=== PATIENT | male | born 1985 | race African-American/Black ===

== ENCOUNTER → 2017-03-16 | Outpatient (CLI) | payer OTHER | LOC: RAD 14:56 | PROVIDERS: ATTEND Physician Assistant Medical | DX: S80.912A Unspecified superficial injury of left knee, initial encounter (principal); M25.562 Pain in left knee; X58.XXXA Exposure to other specified factors, initial encounter ==

== ENCOUNTER 2017-03-23 15:18 | Day surgery (SDC) | payer OTHER ==
[~2017-03-23 15:18] MED LIST: BUPIVACAINE HCL 0.25 % INJ/PF (2.5 MG/1 ML) 30 ML VIAL ONE; CEFAZOLIN 2 GM/D5W RTU 2 GM/50 ML RTUPB IV PRN; DEXAMETHASONE SOD PHOSPHATE INJ 4 MG/1 ML VIAL ONE; ONDANSETRON HCL INJ/PF 4 MG/2 ML SDV ONE; SUCCINYLCHOLINE CHLORIDE INJ 200 MG/10 ML VIAL ONE
[2017-03-23 16:10] LABS: HEMATOCRIT 46.1 % (37.9-51.0); HEMOGLOBIN 15.5 g/dL (13.5-17.0); HGB HCT DIFFERENCE 0.4; MEAN CORPUSCULAR HEMOGLOBIN 30.9 pg (27.0-33.4); MEAN CORPUSCULAR HGB CONC 33.6 g/dL (32.0-36.0); MEAN CORPUSCULAR VOLUME 92 fl (80-97); RED BLOOD COUNT 5.01 10^6/uL (4.35-5.55); RED CELL DISTRIBUTION WIDTH 13.3 % (11.5-14.0); WHITE BLOOD COUNT 4.1 10^3/uL (4.0-10.5)
[2017-03-23 16:26] LABS: ANION GAP 8 (5-19); BLOOD UREA NITROGEN 23 mg/dL (7-20); CALCIUM 9.5 mg/dL (8.4-10.2); CARBON DIOXIDE 29 mmol/L (22-30); CHLORIDE 102 mmol/L (98-107); CREATININE RESULT 1.26 mg/dL (0.52-1.25); GLUCOSE 89 mg/dL (75-110); POTASSIUM 4.4 mmol/L (3.6-5.0); SODIUM 139.2 mmol/L (137-145)
[2017-03-23] MEDS ORDERED: MIDAZOLAM 2 MG/2 ML INJ ONE (16:34)
[2017-03-23] MEDS ORDERED: HYDROMORPHONE HCL INJ/PF 2 MG/ML AMPULE ONE (16:34)
[2017-03-23] MEDS ORDERED: FENTANYL CITRATE INJ/PF 250 MCG/5 ML AMPULE ONE (16:34)
[2017-03-23] MEDS ORDERED: EPHEDRINE SULFATE INJ 50 MG/1 ML AMPULE ONE (16:35)
[2017-03-23] MEDS ORDERED: ACETAMINOPHEN 100 ML IV ONE (16:35)
[2017-03-23] MEDS ORDERED: PROPOFOL INJ 200 MG/20 ML VIAL IV ONE (16:35)
[2017-03-23] MEDS ORDERED: OXYCODONE-ACETAMINOPHEN 5-325 MG TABLET PO PRN ×4 (18:03→19:08)
[2017-03-23] MEDS ORDERED: MEPERIDINE HCL/PF INJ 25 MG/1 ML DISP.SYRIN IV PRN (18:03)
[2017-03-23] MEDS ORDERED: FENTANYL CITRATE INJ/PF 100 MCG/2 ML AMPUL IV PRN ×3 (18:03)
[2017-03-23] MEDS ORDERED: DIPHENHYDRAMINE HCL 50 MG/ML VIAL IV PRN (18:03)
[2017-03-23] MEDS ORDERED: MORPHINE SULFATE 10 MG/ML INJ IV PRN (18:03)
[2017-03-23] MEDS ORDERED: PROMETHAZINE HCL INJ 25 MG/1 ML VIAL IV PRN ×2 (18:03)
--- NOTE | 2017-03-23 19:01 | Operative Report ---
Operative Report DATE OF SURGERY: 03/23/17 PREOPERATIVE DIAGNOSIS: Left quadriceps tendon rupture POSTOPERATIVE DIAGNOSIS: Left quadriceps tendon rupture OPERATION: Left quadriceps tendon repair SURGEON: CHARAN QUIJANO ANESTHESIA: GA TISSUE REMOVED OR ALTERED: None COMPLICATIONS: None ESTIMATED BLOOD LOSS: 5 mL INTRAOPERATIVE FINDINGS: Greater than 95% rupture of the quadriceps tendon PROCEDURE: After receiving 2 g of Ancef in the preop holding area patient left knee was marked. Patient was brought to the operating room where the patient was successfully sedated and intubated. A thigh tourniquet was applied to the left thigh and a bump was placed under his buttocks. The left lower extremity was prepped and draped in a normal sterile surgical fashion. Timeout was done identifying the left knee as the correct site. Esmarch was used to exsanguinate the extremity and the tourniquet was inflated to 300 mmHg. A longitudinal incision over the knee was done using a 10 blade. Deep knife was using to quickly exposed the torn quadriceps tendon. Dissection was taken down distally exposing the patellar tendon. Suction was used to remove all of the fluid and hematoma. The edges of the quadriceps tendon and superior pole of patella were debrided and cleaned with Octavio, and knife. I used 2 #2 fiber tape to do my Krakw stitch in the quadriceps tendon. After the 4 strands of the fiber tape were coming out of the quadriceps I clamped these and then proceeded to do my 3 drill holes in the patella. I use a 2.0 drill bit and made separate stab incisions parallel with the patellar tendon fibers to expose the inferior pole of the patella distally. I used a Knight suture passer and passed it from the superior pole and came out of the stab incisions distally to capture Vicryl which I pulled through them. The Vicryl was used as a suture passer and I was used the fiber wires and freedom through them through the superior pole and have him come out the inferior pole. After 4 strands were passed, one most lateral one most medial and the 2 inner tails were passed through the middle drill hole. The knee was placed in full extension and I was able to pull on the fiber strands to make sure that the quadriceps tendon would abut the superior pole of the patella. I was able then to go and tying knots securing the quadriceps tendon to the superior pole. After securing the tendon I proceeded then to use 0 Vicryl to repair the medial and lateral retinaculum. I used 0 Vicryl to repair the stab incisions in the patellar tendon. I placed the knee from 0 to 90 making sure that my repair held and it did. At this point I proceeded to close the wound with 0 Vicryl to Vicryl and bennett for skin. Xeroform 4 x 4 dressing and Sof-Rol was applied to the wound and lower extremity. I overwrapped it with an Suresh bandage. Tourniquet was let down and then the drapes were removed. Patient was placed in a hinged knee brace locked at 0. Patient was successfully extubated and sent to PACU in stable condition.
--- NOTE | 2017-03-23 19:08 | PDOC DISCHARGE SUMMARY ---
Discharge Summary (SDC) - Discharge Final Diagnosis: Left quadriceps tendon repair Date of Surgery: 03/23/17 Discharge Date: 03/23/17 Condition: Good Treatment or Instructions: Weight-bear as tolerated with hinged knee brace locked at 0. Use crutches for stability. Ice and elevate when not ambulating. Follow-up in 10-14 days Change dressing in 5 days. At that point patient can shower the extremity. No soaking of the incision. Prescriptions: Ondansetron HCl [Zofran 4 mg Tablet] 1 - 2 tab PO Q8HP PRN #20 tablet PRN Reason: Oxycodone HCl/Acetaminophen [Percocet 5-325 mg Tablet] 1 - 2 tab PO ASDIR PRN # 25 tablet PRN Reason: Discharge Diet: As Tolerated Respiratory Treatments at Home: Deep Breathing/Coughing Discharge Activity: No Lifting/Push/Pulling Home Care Assistance: None Needed Adaptive Devices on Discharge: Axillary Crutches Report the Following to Your Physician Immediately: Shortness of Breath, Vomiting, Increase in Pain, Fever over 101 Degrees, Unusual Bleeding, Redness, Swelling, Warmth, Drainage-Yellow, Drainage-Green, Drainage-Foul Smelling, Visual Disturbance, Seizure
[2017-03-23] MEDS ORDERED: IBUPROFEN INJ 800 MG/8 ML VIAL IV ONE (19:10)
[2017-03-23] MEDS ORDERED: LIDOCAINE 2%/EPINEPHRINE INJ 20 ML VIAL ONE (19:36)
[2017-03-23] MEDS ORDERED: ROPIVACAINE HCL 0.5% INJ/PF (5 MG/1 ML) 30 ML SDV ONE (19:36)
[2017-03-23] MEDS ORDERED: LIDOCAINE 2% INJ-PF (20 MG/ML) 10 ML AMPUL ONE (19:37)
[2017-03-23 23:03] VITALS: BP 131/92
== END 2017-03-23 23:24 | disposition home or self-care (01) ==
LOC: OROUT 15:18 → 4S 20:08 → OROUT 23:24
PROVIDERS: ATTEND Orthopaedic Surgery
PROC: 0LQM0ZZ Repair Left Upper Leg Tendon, Open Approach (ICD-10-PCS; principal; 2017-03-23 15:00)
DX: S76.192A Other specified injury of left quadriceps muscle, fascia and tendon, initial encounter (principal); X58.XXXA Exposure to other specified factors, initial encounter; M25.562 Pain in left knee
CPT/HCPCS: 36415; 85027; 80048; 27664; L1830; J2795; J2250; J1100; J3490 ×3; J3010; J1170; J0330; J2405; J2704; J0690; J0131; J1741; 1250

== ENCOUNTER 2017-06-29 10:26 | Day surgery (SDC) | payer OTHER ==
--- NOTE | 2017-06-26 10:16 | RADIOLOGY REPORT (SQ) ---
EXAM DESCRIPTION: CHEST PA/LATERAL COMPLETED DATE/TIME: 06/26/2017 10:08 am REASON FOR STUDY: PRE OP COMPARISON: None. EXAM PARAMETERS: NUMBER OF VIEWS: two views TECHNIQUE: Digital Frontal and Lateral radiographic views of the chest acquired. RADIATION DOSE: NA LIMITATIONS: none FINDINGS: LUNGS AND PLEURA: No opacities, masses or pneumothorax. No pleural effusion. MEDIASTINUM AND HILAR STRUCTURES: No masses or contour abnormalities. HEART AND VASCULAR STRUCTURES: Heart normal size. No evidence for failure. BONES: No acute findings. HARDWARE: None in the chest. OTHER: No other significant finding. IMPRESSION: NO SIGNIFICANT RADIOGRAPHIC FINDING IN THE CHEST. TECHNICAL DOCUMENTATION: JOB ID: [id number]- All Rights Reserved
[2017-06-26 10:41] LABS: APPEARANCE,URINE CLEAR; BILIRUBIN,URINE NEGATIVE (NEGATIVE); GLUCOSE, URINE NEGATIVE (NEGATIVE); KETONES,URINE NEGATIVE (NEGATIVE); LEUKOCYTE ESTERASE,URINE NEGATIVE (NEGATIVE); NITRITE,URINE NEGATIVE (NEGATIVE); PROTEIN,URINE NEGATIVE (NEGATIVE); URINE SPECIFIC GRAVITY 1.016; UROBILINOGEN,URINE NEGATIVE mg/dL (<2.0)
[2017-06-26 10:48] LABS: ABSOLUTE EOSINOPHILS # (AUTO) 0.1 10^3/uL (0.0-0.6); ABSOLUTE LYMPHOCYTES (AUTO) 1.7 10^3/uL (0.5-4.7); ABSOLUTE MONOCYTES (AUTO) 0.3 10^3/uL (0.1-1.4); BASOPHILS % (AUTO) 0.6 % (0-2); EOSINOPHILS % (AUTO) 3.2 % (0-6); HEMATOCRIT 44.3 % (37.9-51.0); HEMOGLOBIN 14.9 g/dL (13.5-17.0); HGB HCT DIFFERENCE 0.4; LYMPHOCYTES % (AUTO) 41.1 % (13-45); MEAN CORPUSCULAR HEMOGLOBIN 31.3 pg (27.0-33.4); MEAN CORPUSCULAR HGB CONC 33.7 g/dL (32.0-36.0); MEAN CORPUSCULAR VOLUME 93 fl (80-97); MONOCYTES % (AUTO) 6.9 % (3-13); RED BLOOD COUNT 4.76 10^6/uL (4.35-5.55); RED CELL DISTRIBUTION WIDTH 13.8 % (11.5-14.0); SEGMENTED NEUTROPHILS % (AUTO) 48.2 % (42-78); WHITE BLOOD COUNT 4.2 10^3/uL (4.0-10.5)
[2017-06-26 11:15] LABS: ANION GAP 11 (5-19); BLOOD UREA NITROGEN 21 mg/dL (7-20); CALCIUM 9.9 mg/dL (8.4-10.2); CARBON DIOXIDE 28 mmol/L (22-30); CHLORIDE 102 mmol/L (98-107); CREATININE RESULT 1.12 mg/dL (0.52-1.25); GLUCOSE 91 mg/dL (75-110); SODIUM 140.5 mmol/L (137-145)
--- NOTE | 2017-06-26 12:06 | EKG REPORT ---
SEVERITY:- NORMAL ECG - SINUS RHYTHM : Confirmed by: Davonte Garcia 26-Jun-2017 12:06:33
[~2017-06-29 10:26] MED LIST changes: -BUPIVACAINE HCL 0.25 % INJ/PF (2.5 MG/1 ML) 30 ML VIAL ONE; -DEXAMETHASONE SOD PHOSPHATE INJ 4 MG/1 ML VIAL ONE; +LACTATED RINGERS 1000 ML IV PRN; +LIDOCAINE 0.5% INJ-PF (5 MG/ML) 50 ML SDV SUBCUT PRN; -ONDANSETRON HCL INJ/PF 4 MG/2 ML SDV ONE; -SUCCINYLCHOLINE CHLORIDE INJ 200 MG/10 ML VIAL ONE
[2017-06-29] MEDS ORDERED: FENTANYL CITRATE INJ/PF 250 MCG/5 ML AMPULE ONE (12:26)
[2017-06-29] MEDS ORDERED: IBUPROFEN INJ 800 MG/8 ML VIAL IV ONE (12:27)
[2017-06-29] MEDS ORDERED: MIDAZOLAM 2 MG/2 ML INJ ONE (12:27)
[2017-06-29] MEDS ORDERED: EPHEDRINE SULFATE INJ 50 MG/1 ML AMPULE ONE (12:27)
[2017-06-29] MEDS ORDERED: PROPOFOL INJ 200 MG/20 ML VIAL IV ONE (12:27)
[2017-06-29] MEDS ORDERED: HYDROMORPHONE HCL INJ/PF 2 MG/ML AMPULE ONE (12:28)
[2017-06-29] MEDS ORDERED: PROMETHAZINE HCL INJ 25 MG/1 ML VIAL IV PRN (13:01)
[2017-06-29] MEDS ORDERED: MEPERIDINE HCL/PF INJ 25 MG/1 ML DISP.SYRIN IV PRN (13:01)
[2017-06-29] MEDS ORDERED: DIPHENHYDRAMINE HCL 50 MG/ML VIAL IV PRN (13:01)
[2017-06-29] MEDS ORDERED: FENTANYL CITRATE INJ/PF 100 MCG/2 ML AMPUL IV PRN ×3 (13:01)
[2017-06-29] MEDS ORDERED: BUPIVACAINE HCL 0.25 % INJ/PF (2.5 MG/1 ML) 30 ML VIAL ONE (14:14)
[2017-06-29] MEDS ORDERED: OXYCODONE-ACETAMINOPHEN 5-325 MG TABLET PO PRN ×2 (14:55)
--- NOTE | 2017-06-29 14:55 | PDOC DISCHARGE SUMMARY ---
Discharge Summary (SDC) - Discharge Final Diagnosis: Revision left quadriceps tendon repair Date of Surgery: 06/29/17 Condition: Good Forms: ASU Anesthesia D/C Instruction, Discharge POC-Surgical Service Treatment or Instructions: Keep hinged knee brace locked at 0. Able to weight-bear as tolerated with crutches as long as the brace is locked at 0. Dressing change in 4 days then okay to shower left lower extremity. Follow-up in 10-14 days. Prescriptions: Ondansetron HCl [Zofran 4 mg Tablet] 1 - 2 tab PO Q8HP PRN #14 tablet PRN Reason: Oxycodone HCl/Acetaminophen [Percocet 5-325 mg Tablet] 1 - 2 tab PO ASDIR PRN # 30 tablet PRN Reason: Referrals: CHARAN HAMPTON MD [ACTIVE STAFF] - Discharge Diet: As Tolerated Discharge Activity: Keep Legs Elevated, No Lifting/Push/Pulling Home Care Assistance: None Needed Adaptive Devices on Discharge: Axillary Crutches Report the Following to Your Physician Immediately: Shortness of Breath, Vomiting, Increase in Pain, Fever over 101 Degrees, Unusual Bleeding, Redness, Swelling, Warmth, Increased Soreness, Drainage-Yellow, Drainage-[place], Drainage- Green, Drainage-Foul Smelling
--- NOTE | 2017-06-29 15:00 | Operative Report ---
Operative Report DATE OF SURGERY: 06/29/17 PREOPERATIVE DIAGNOSIS: Rerupture of left quadriceps tendon POSTOPERATIVE DIAGNOSIS: Same OPERATION: Revision left quadriceps tendon repair SURGEON: CHARAN QUIJANO ANESTHESIA: GA TISSUE REMOVED OR ALTERED: Scarred fibrous tissue COMPLICATIONS: None ESTIMATED BLOOD LOSS: 20mL INTRAOPERATIVE FINDINGS: As above PROCEDURE: Patient was brought to the operating room where he was induced and intubated in supine position. He received his preoperative antibiotics and a thigh tourniquet is applied to the left lower extremity. Left lower extremity was prepped and draped in normal sterile surgical fashion. Timeout was done identifying the left knee is a correct site. Esmarch was used to exsanguinate the extremity and the tourniquet was inflated at 300 mmHg. Same incision was used to expose the reruptured quadriceps tendon. Scar tissue was removed to visualize the stump of the quadriceps tendon. The FiberWire is exposed were then exposed and some of them removed and some of them cut. Then proceeded to drill using the same holes but this time applied 5.5 by composite corkscrews with suture tape. Anchors were double. One suture tape of each anchor was used to do a Krakw locking stitch into the quadriceps tendon. We placed the knee in extension and time to the best of her abilities. The remaining sutures in each ankle were then passed again superficially to reapproximate the tendon superficially. After not tying the sutures were cut with a fiber tape scissors. I placed an range of motion and was able to do 0-30 before there was tension on the repair. I used 0 Vicryl to approximate the retinaculum and tightly securely down with simple stitches. I proceeded then to use both irrigation for the wound. I used 0 Vicryl to approximate the subcutaneous tissue and 2-0 Vicryl for the dermis. [place] for skin. Extremity was cleaned and then Xeroform followed by 4 x 4 dressing and ABD was applied followed by soft roll and Suresh bandage. Tourniquet was let down at 90 minutes and the drapes were removed. Patient was then extubated and sent to PACU in stable condition
[2017-06-29] MEDS ORDERED: SUCCINYLCHOLINE CHLORIDE INJ 200 MG/10 ML VIAL ONE (15:28)
[2017-06-29] MEDS ORDERED: DEXAMETHASONE SOD PHOSPHATE INJ 4 MG/1 ML VIAL ONE (15:28)
[2017-06-29] MEDS ORDERED: ONDANSETRON HCL INJ/PF 4 MG/2 ML SDV ONE ×2 (15:28→18:12)
[2017-06-29] MEDS ORDERED: OXYCODONE-ACETAMINOPHEN 5-325 MG TABLET ONE (15:31)
[2017-06-29 19:13] VITALS: BP 135/86
== END 2017-06-29 19:11 | disposition home or self-care (01) ==
LOC: OROUT 10:26
PROVIDERS: ATTEND Orthopaedic Surgery
PROC: 0LQM0ZZ Repair Left Upper Leg Tendon, Open Approach (ICD-10-PCS; principal; 2017-06-29 12:30)
DX: S76.112A Strain of left quadriceps muscle, fascia and tendon, initial encounter (principal); X58.XXXA Exposure to other specified factors, initial encounter; M62.81 Muscle weakness (generalized); M25.562 Pain in left knee; Z79.1 Long term (current) use of non-steroidal anti-inflammatories (NSAID)
CPT/HCPCS: 93005; 36415; 85025; 80048; 81001; 71020; 93010; 27385; J2250; J1100; J3010; J1170; J0330; J2405; J2704; J0690; J1741; 1320; J3490

== ENCOUNTER 2018-03-18 20:48 | Emergency (ER) | payer OTHER, BC ==
[2018-03-18 23:28] LABS: ABSOLUTE EOSINOPHILS # (AUTO) 0.1 10^3/uL (0.0-0.6); ABSOLUTE LYMPHOCYTES (AUTO) 1.5 10^3/uL (0.5-4.7); ABSOLUTE MONOCYTES (AUTO) 0.6 10^3/uL (0.1-1.4); ABSOLUTE NEUT (AUTO) 3.2 10^3/uL (1.7-8.2); BASOPHILS % (AUTO) 0.4 % (0-2); EOSINOPHILS % (AUTO) 1.9 % (0-6); HEMATOCRIT 46.2 % (37.9-51.0); HEMOGLOBIN 15.4 g/dL (13.5-17.0); LYMPHOCYTES % (AUTO) 27.8 % (13-45); MEAN CORPUSCULAR HEMOGLOBIN 30.4 pg (27.0-33.4); MEAN CORPUSCULAR HGB CONC 33.4 g/dL (32.0-36.0); MEAN CORPUSCULAR VOLUME 91 fl (80-97); MONOCYTES % (AUTO) 10.4 % (3-13); PLATELET COUNT 159 10^3/uL (150-450); RED BLOOD COUNT 5.07 10^6/uL (4.35-5.55); SEGMENTED NEUTROPHILS % (AUTO) 59.5 % (42-78); TOTAL CELLS COUNTED % (AUTO) 100 %; WHITE BLOOD COUNT 5.4 10^3/uL (4.0-10.5)
--- NOTE | 2018-03-18 23:40 | ER Document Report ---
ED General - General Chief Complaint: Chest Pain Stated Complaint: CHEST PAIN Time Seen by Provider: 03/18/18 22:41 Notes: Patient is a 33-year-old male past medical history of a left lower extremity knee surgery 4 months ago currently uses an immobilizer on a regular basis who presents with acute onset of chest pain with associated shortness of breath. Patient states that he was out in the yard not actively exerting himself when he abruptly felt a stabbing pain to the center of his chest that has persisted since that time. He does note that it has been somewhat since onset but does remain present. Nothing improves or worsens his symptoms. He denies any history of similar symptoms in the past. He states that he felt somewhat anxious after the pain started but not before. He has not seen his primary doctor regarding today's concerns. He has noticed some swelling to the left lower extremity in the past 3-4 days with associated aching and cramping pain. He denies any prior history of cardiac disease DVT or pulmonary embolus in the past. TRAVEL OUTSIDE OF THE [place] IN LAST 30 DAYS: No - Related Data Allergies/Adverse Reactions: No Known Allergies Allergy (Verified 03/18/18 21:24) Past Medical History - General Information source: Patient - Social History Smoking Status: Never Smoker Frequency of alcohol use: None Drug Abuse: None Lives with: Spouse/Significant other Family History: Reviewed & Not Pertinent - Past Medical History Cardiac Medical History: Denies: Hx Coronary Artery Disease, Hx Heart Attack, Hx Hypertension Pulmonary Medical History: Denies: Hx Asthma, Hx Bronchitis, Hx COPD, Hx Pneumonia Neurological Medical History: Denies: Hx Cerebrovascular Accident, Hx Seizures Musculoskeltal Medical History: Reports Hx Arthritis - LEFT ANKLE - Immunizations Hx Diphtheria, Pertussis, Tetanus Vaccination: No Review of Systems - Review of Systems Notes: Constitutional: Negative for fever. HENT: Negative for sore throat. Eyes: Negative for visual changes. Cardiovascular: Positive for chest pain. Respiratory: Positive for shortness of breath. Gastrointestinal: Negative for abdominal pain, vomiting or diarrhea. Genitourinary: Negative for dysuria. Musculoskeletal: Negative for back pain. Skin: Negative for rash. Neurological: Negative for headaches, weakness or numbness. 10 point ROS negative except as marked above and in HPI. Physical Exam - Vital signs Vitals: Temp Pulse Resp BP Pulse Ox 98.2 F 108 H 16 139/108 H 98 03/18/18 21:04 03/18/18 21:04 03/18/18 21:04 03/18/18 21:04 03/18/18 21:04 Interpretation: Tachycardic Notes: PHYSICAL EXAMINATION: GENERAL: Well-appearing, well-nourished and in no acute distress. HEAD: Atraumatic, normocephalic. EYES: Pupils equal round and reactive to light, extraocular movements intact, sclera anicteric, conjunctiva are normal. ENT: nares patent, oropharynx clear without exudates. Moist mucous membranes. NECK: Normal range of motion, supple without lymphadenopathy LUNGS: Breath sounds clear to auscultation bilaterally and equal. No wheezes rales or rhonchi. HEART: Tachycardia, without murmurs ABDOMEN: Soft, nontender, normoactive bowel sounds. No guarding, no rebound. No masses appreciated. EXTREMITIES: Normal range of motion, 1+ pitting edema in the left lower extremely not present on the right. NEUROLOGICAL: No focal neurological deficits. Moves all extremities spontaneously and on command. PSYCH: Normal mood, normal affect. SKIN: Warm, Dry, normal turgor, no rashes or lesions noted. Course - Re-evaluation Re-evalutation: 03/18/18 23:38 Patient presents with mild left lower extremity swelling as well as some mild tachycardia and complaints of some slight tachypnea although no hypoxia. Patient is otherwise very well in appearance, in no acute distress. EKG without ischemic changes and I do not clinically suspect ACS. Primary concern would be for a possible pulmonary embolus. A d-dimer has been sent as PERC criteria is positive. 03/19/18 00:22 Troponin has returned and is moderately elevated. I am significantly concerned this may be related to heart strain in the setting of a pulmonary embolus. Will proceed directly to CT at this time point 03/19/18 01:42 CT shows bilateral pulmonary emboli with evidence of right heart strain and his troponin is moderately elevated. Given his troponin elevation and evidence of right heart strain the hospitalist has requested that I transfer. I have contacted [facility] for transfer. 03/19/18 02:04 I have reassessed the patient again he remains hemodynamically within acceptable limits, mild tachycardia at 102 at this time. No distress. Lovenox has been administered. I have discussed this case with Dr. Matamoros at [facility] and reviewed the case with him. He has agreed to accept the patient in transfer. Will continue to reassess at regular intervals 03/19/18 04:04 Patient continues to be stable, vitals remain within normal limits without hypoxia, tachycardia or tachypnea. He remains appropriate and stable for transport - Vital Signs Vital signs: Temp Pulse Resp BP Pulse Ox 98.2 F 108 H 15 139/108 H 99 03/18/18 21:04 03/18/18 21:04 03/19/18 02:00 03/18/18 21:04 03/19/18 02:00 - Laboratory Result Diagrams: 03/18/18 23:08 03/18/18 23:32 Laboratory results interpreted by me: 03/18/18 23:08 D-Dimer 8.86 H - Diagnostic Test Radiology reviewed: Image reviewed, Reports reviewed Radiology results interpreted by me: 03/18/18 23:40 Chest x-ray: No acute infiltrate or pneumothorax - EKG Interpretation by Me Additional EKG results interpreted by me: 03/18/18 23:40 Sinus tachycardia. Rate 104. No ST elevations or depressions. QTC is 421. Critical Care Note - Critical Care Note Total time excluding time spent on procedures (mins): 37 Comments: Critical care time spent obtaining history from patient or surrogate, discussions with consultants, development of treatment plan with patient or surrogate, evaluation of patient's response to treatment, examination of patient , ordering and performing treatments and interventions, ordering and review of laboratory studies, re-evaluation of patient's condition, ordering and review of radiographic studies and review of old charts Discharge - Discharge Clinical Impression: Bilateral pulmonary embolism, Shortness of breath, Elevated troponin I level Left leg DVT Qualifiers: Affected thrombotic vein of extremity: unspecified vein of extremity Chronicity : acute Qualified Code(s): I82.402 - Acute embolism and thrombosis of unspecified deep veins of left lower extremity Condition: Fair Disposition: [facility]
--- NOTE | 2018-03-18 23:41 | RADIOLOGY REPORT (SQ) ---
EXAM DESCRIPTION: CHEST SINGLE VIEW COMPLETED DATE/TIME: 03/18/2018 11:25 pm REASON FOR STUDY: chest pain COMPARISON: None. NUMBER OF VIEWS: One view. TECHNIQUE: Single frontal radiographic view of the chest acquired. LIMITATIONS: None. FINDINGS: LUNGS AND PLEURA: Peribronchial cuffing and interstitial changes. No consolidation, pneumo thorax or effusion. MEDIASTINUM AND HILAR STRUCTURES: No masses. Contour normal. HEART AND VASCULAR STRUCTURES: Heart normal in size. Normal vasculature. BONES: No acute findings. HARDWARE: None in the chest. OTHER: No other significant finding. IMPRESSION: REACTIVE AIRWAY DISEASE VERSUS VIRAL SYNDROME. NO CONSOLIDATION. TECHNICAL DOCUMENTATION: JOB ID: [id number]-72 2010 [employer]- All Rights Reserved Reading location - IP/workstation name: [email or web address]
[2018-03-18 23:52] LABS: ANION GAP 12 (5-19); BLOOD UREA NITROGEN 19 mg/dL (7-20); CALCIUM 9.8 mg/dL (8.4-10.2); CARBON DIOXIDE 28 mmol/L (22-30); CHLORIDE 103 mmol/L (98-107); GLUCOSE 105 mg/dL (75-110); SODIUM 143.2 mmol/L (137-145)
--- NOTE | 2018-03-19 00:44 | EKG REPORT ---
SEVERITY:- ABNORMAL ECG - SINUS TACHYCARDIA FIRST DEGREE AV BLOCK PROBABLE LEFT ATRIAL ABNORMALITY PROBABLE INFERIOR INFARCT, AGE INDETERMINATE CONSIDER POSTERIOR WALL INVOLVEMENT : Confirmed by: Davonte Garcia 19-Mar-2018 00:44:14
--- NOTE | 2018-03-19 01:21 | RADIOLOGY REPORT (SQ) ---
EXAM DESCRIPTION: CT angiogram chest with contrast CLINICAL HISTORY: Chest pain COMPARISON: None. TECHNIQUE: Axial CT images of the chest were acquired after the administration of intravenous contrast. Coronal and sagittal reconstructions were obtained. This exam was performed according to our departmental dose-optimization program which includes use of Automated Exposure Control, adjustment of the mA and/or kV according to patient size and/or use of iterative reconstruction technique. FINDINGS: Neck base: Unremarkable. Mediastinum: Unremarkable. Lymph Nodes: No lymphadenopathy. Heart and pericardium: Straightening of the intraventricular septum suggestive of right heart strain. No pericardial effusion. Aorta: No aneurysm. Pulmonary Artery: Large bilateral pulmonary emboli. Thrombus seen within the right main pulmonary artery extending into lobar, segmental, and subsegmental vessels. Thrombus within the left upper and lower lobar vessels extending into segmental and subsegmental vessels. Central Airways: Patent. Pleura: No pneumothorax or pleural effusion. Lungs: No suspicious pulmonary nodules or masses. Upper abdomen: Unremarkable. Bones and soft tissues: No acute osseous or soft tissue abnormalities. IMPRESSION: Large bilateral pulmonary emboli with evidence of right heart strain. Critical findings discussed with the patient's nurse Emi Goff by Jayson Cadena MD at 03/19/2018 12:16 AM CDT by phone.
[2018-03-19] MEDS ORDERED: NORMAL SALINE 1000 ML 1,000 ML IV ONE (01:22)
[2018-03-19] MEDS ORDERED: ENOXAPARIN SODIUM INJ 100 MG/1 ML DISP.SYRIN SUBCUT ONE (01:30)
[2018-03-19 06:20] VITALS: BP 147/102
[2018-03-19] MEDS ORDERED: ENOXAPARIN SODIUM INJ 100 MG/1 ML DISP.SYRIN SUBCUT SCH (18:00)
== END 2018-03-19 06:30 | disposition short-term general hospital (02) ==
LOC: ER 20:48
DX: I82.402 Acute embolism and thrombosis of unspecified deep veins of left lower extremity (principal); I26.99 Other pulmonary embolism without acute cor pulmonale; R06.02 Shortness of breath; R79.89 Other specified abnormal findings of blood chemistry; R60.0 Localized edema; R07.9 Chest pain, unspecified; M79.89 Other specified soft tissue disorders; R00.0 Tachycardia, unspecified; Z98.890 Other specified postprocedural states
CPT/HCPCS: 93005; 99291; 96372; 96360; 36415; 85025; 80048; 84484; 85379; 83880; 71045; 71275; 93010; J7030; J1650

== ENCOUNTER → 2018-04-03 | Outpatient (CLI) | payer OTHER, BC ==
--- NOTE | 2018-04-03 12:18 | XCELERA REPORT ---
[address] [address] Lower Extremity Venous Evaluation Name: DOM NARVAEZ Age: 33 yrs Gender: Male : 1985 Patient Status: Outpatient Patient Location: Study Date: 04/03/2018 11:02 AM Procedure: Color flow and duplex imaging of the veins of the left lower extremity as well as the right Common Femoral vein. Reason For Study: LLE M79.605 Ordering Physician: CHARAN QUIJANO Performed By: Josie Sandoval Right Sided Venous Evaluation The right common femoral vein is fully compressible. Spontaneous and phasic flow is present in the right common femoral vein. Left Sided Venous Evaluation Abnormal vessel filling , partial compression and some recannulization, Colour flow in Peroneal and in short segment, one of two Femoral veins. 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 : CHARAN QUIJANO > Bk [place]
== END ==
LOC: SP 10:29
PROVIDERS: ATTEND Orthopaedic Surgery
DX: I82.402 Acute embolism and thrombosis of unspecified deep veins of left lower extremity (principal); M79.605 Pain in left leg
CPT/HCPCS: 93971